=== PATIENT | female | born 1995 | race Caucasian/White ===

== ENCOUNTER 2020-01-23 01:23 | Day surgery (SDC) | payer BC, MEDICARE ==
--- NOTE | 2020-01-23 01:48 | ED.PDOC ---
History of Present Illness - History of Present Illness Initial Comments: 24 yo otherwise healthy F moved here recently from [place], comes in with c/c of RUQ that started at 10 PM. States she has a known history of cholelithasis. She was suppose to have her gallbladder removed, but never got it done. +n/v/d. Has had many flair ups, but none in the past month. States her flair ups are worse after eating certain foods. Ate spicy chicken tonight which seemed to trigger her symptoms. no fever. no yellowing of skin. no back pain. no dysuria, heamturia. <Chuyita Bose - Last Filed: 01/23/20 06:53> <Rocky Lam - Last Filed: 01/23/20 12:07> - General Time Seen by Provider: 01/23/20 01:37 Review of Systems - Review of Systems Constitutional: Denies: chills, fever EENTM: Denies: blurred vision, throat pain, throat swelling Respiratory: Denies: cough, short of breath Cardiology: Denies: chest pain, palpitations Gastrointestinal/Abdominal: States: abdominal pain, diarrhea, nausea, vomiting, other - denies black or bloody bm. Denies: constipation Genitourinary: Denies: dysuria, frequency, hematuria Musculoskeletal: Denies: back pain, muscle pain Skin: Denies: change in color, rash Neurological: Denies: headache, numbness, paresthesia, pre-existing deficit, tingling, tremors, weakness Endocrine: Denies: increased hunger, increased thirst, increased urine, unexplained weight gain, unexplained weight loss Hematologic/Lymphatic: Denies: anemia, easy bleeding, easy bruising <Chuyita Bose - Last Filed: 01/23/20 06:53> Past Medical History (General) - Patient Medical History Hx Other PMH: Yes - anemia, hx of miscarriage 11/2019 Hx Other - free text: gallstones, miscarriage November 2019 Surgical History: no surgical history - Social History Hx Alcohol Use: No Hx Substance Use: No Hx Substance Use Treatment: No - Female History Patient is a Female of Child Bearing Age (10 -59 yrs old): Yes - Hx Last Menstrual Period: 12/06/19 Patient : No <Chuyita Bose - Last Filed: 01/23/20 06:53> Family Medical History - Family History Mother Family History: No Known Non Contributory this Encounter: Non Contributory for this Encounter <Chuyita Bose - Last Filed: 01/23/20 06:53> Physical Exam - Physical Exam General Appearance: Alert, Comfortable, No apparent distress Eyes, Ears, Nose, Throat Exam: PERRL/EOMI, normal ENT inspection Neck: non-tender, full range of motion, supple, normal inspection Respiratory: chest non-tender, lungs clear, normal breath sounds, no respiratory distress, no accessory muscle use Cardiovascular/Chest: normal peripheral pulses, regular rate, rhythm, no edema, no gallop, no JVD, no murmur Peripheral Pulses: 2+ Gastrointestinal/Abdominal: normal bowel sounds, soft, no organomegaly, no pulsatile mass, tenderness, other - RUQ tenderness, no rebound, no gaurding. Rectal Exam: deferred Back Exam: normal inspection, no CVA tenderness, no vertebral tenderness Extremity: normal range of motion, non-tender, normal inspection, no pedal edema, no calf tenderness Neurologic: no motor/sensory deficits, alert, normal mood/affect, oriented x 3 Skin Exam: normal color, warm/dry Special Observations: Using mobile device <Chuyita Bose - Last Filed: 01/23/20 06:53> Progress - Progress Progress: 01/23/20 03:07 Partial DDx: kidney stone, cholelithiasis, Choleycystitis, pancreatitis, gastroenteritis Patient given zofran, toradol. Blood work drawn. Pain continues given 4 mg morphine. which helped pain. Over the course of 2 hours she has a total of 15 mg toradol x 2, morphine 4mg x1, Tylenol. if pain continues with give a dose of dilaudid. 4 mg zofran x 2. blood work shows mild luekocytosis, otherwise lft wnl. UA unremarkable. Attempted bedside US which does show shadowing, unable to get a good visualization of gallbladder to evaluate GBW or CBD. no peritoneal signs. blood cultures drawn. Given 500 mg falgyl and 750 mg of levaquin. My assessment and the results of testing completed here in the ED were discussed with the patient. All questions were answered, and they express understanding of my assessment and the plan. Discuss case with Dr. Dias recommends admission, US in AM. US ordered. Discussed with Reymundo Patton, recommends continue to monitor in ER, until US in AM. We will repeat CMP in AM. NPO. Patients Vital signs have remained stable, no peritoneal signs. Signed out to oncoming physician. -Pending repeat labs -pending RUQ ultrasound. 01/23/20 01:42 Sodium Chloride 0.9% 1000ML [Ns 1000 ml] 1,000 ml IVS STAT 01/23/20 02:28 BLOOD CULTURE Stat 01/23/20 03:32 Abdomen,Limited [US] Stat Laboratory Results WBC 11.1 K/mm3 (4.8-10.8) H 01/23/20 01:40 RBC 4.24 M/mm3 (4.20-5.40) 01/23/20 01:40 Hgb 11.0 gm/dL (12.0-16.0) L 01/23/20 01:40 Hct 33.1 % (36.0-47.0) L 01/23/20 01:40 MCV 78.1 fl (81.0-99.0) L 01/23/20 01:40 MCH 25.9 pg (27.0-31.0) L 01/23/20 01:40 MCHC 33.2 g/dL (33.0-37.0) 01/23/20 01:40 RDW 14.8 % (11.5-14.5) H 01/23/20 01:40 Plt Count 308 K/mm3 (130-400) 01/23/20 01:40 MPV 7.5 fl (7.40-10.4) 01/23/20 01:40 Absolute Neuts (auto) 6.90 K/uL (1.8-6.8) H 01/23/20 01:40 Absolute Lymphs (auto) 3.20 K/uL (1.0-3.4) 01/23/20 01:40 Absolute Monos (auto) 0.80 K/uL (0.2-0.8) 01/23/20 01:40 Absolute Eos (auto) 0.20 K/uL (0.0-0.4) 01/23/20 01:40 Absolute Basos (auto) 0.10 K/uL (0.0-0.1) 01/23/20 01:40 Neutrophils % 61.9 % (42.0-78.0) 01/23/20 01:40 Lymphocytes % 28.8 % (20.0-50.0) 01/23/20 01:40 Monocytes % 7.2 % (2.0-9.0) 01/23/20 01:40 Eosinophils % 1.5 % (1.0-5.0) 01/23/20 01:40 Basophils % 0.6 % (0.0-2.0) 01/23/20 01:40 Sodium 139 mmol/L (135-145) 01/23/20 01:40 Potassium 4.0 mmol/L (3.6-5.0) 01/23/20 01:40 Chloride 110 mmol/L (101-111) 01/23/20 01:40 Carbon Dioxide 20 mmol/L (21-31) L 01/23/20 01:40 Anion Gap 13.0 (12-18) 01/23/20 01:40 BUN 12 mg/dL (7-18) 01/23/20 01:40 Creatinine 0.69 mg/dL (0.6-1.3) 01/23/20 01:40 BUN/Creatinine Ratio 17.4 (10-20) 01/23/20 01:40 Random Glucose 91 mg/dL (70-105) 01/23/20 01:40 Serum Osmolality 276.9 mOsm/L (275-295) 01/23/20 01:40 Calcium 9.0 mg/dL (8.4-10.2) 01/23/20 01:40 Total Bilirubin 0.4 mg/dL (0.2-1.0) 01/23/20 01:40 AST 18 IU/L (10-42) 01/23/20 01:40 ALT 21 IU/L (10-60) 01/23/20 01:40 Alkaline Phosphatase 50 IU/L (42-121) 01/23/20 01:40 Serum Total Protein 7.5 gm/dL (6.4-8.2) 01/23/20 01:40 Albumin 4.0 g/dl (3.2-5.5) 01/23/20 01:40 Globulin 3.5 gm/dL (2.3-3.5) 01/23/20 01:40 Albumin/Globulin Ratio 1.1 (1.1-1.9) 09/18/20 01:40 Lipase 30 U/L (22-51) 01/23/20 01:40 Serum HCG, Qual Negative (NEGATIVE) 01/23/20 01:40 Urine Color Yellow (Yellow) 01/23/20 03:12 Urine Appearance Sl cloudy (Clear) 01/23/20 03:12 Urine pH 7.0 (4.5-7.8) 01/23/20 03:12 Ur Specific [place] 1.025 (1.005-1.030) 01/23/20 03:12 Urine Protein Negative mg/dL 01/23/20 03:12 Urine Glucose (UA) Negative mg/dL (Negative) 01/23/20 03:12 Urine Ketones Negative mg/dL (NEGATIVE) 01/23/20 03:12 Urine Blood Negative (Negative) 01/23/20 03:12 Urine Nitrite Negative 01/23/20 03:12 Urine Bilirubin Negative (NEGATIVE) 01/23/20 03:12 Urine Urobilinogen 0.2 mg/dL (0.2-1.0) 01/23/20 03:12 Ur Leukocyte Esterase Negative (Negative) 01/23/20 03:12 Urine RBC 0 /hpf 01/23/20 03:12 Urine WBC 1-3 /hpf 01/23/20 03:12 Ur Epithelial Cells 5-10 /hpf 01/23/20 03:12 Urine Bacteria Rare 01/23/20 03:12 - Consult/PCP Time Called: 02:45 Consult/PCP: Dr. Arun Roblero Reason/Comments: Surgery - Additional EKG/XRAY/Consults Time Called: 03:30 Consult/PCP: Reymundo Patton Reason/Comments: recommends to continue to monitor in ED, US in AM <Chuyita Bose - Last Filed: 01/23/20 06:53> - Results/Orders Results/Orders: Laboratory Tests 01/23/20 01/23/20 01/23/20 01:40 01:40 01:40 WBC 11.1 H RBC 4.24 Hgb 11.0 L Hct 33.1 L MCV 78.1 L MCH 25.9 L MCHC 33.2 RDW 14.8 H Plt Count 308 MPV 7.5 Absolute Neuts (auto) 6.90 H Absolute Lymphs (auto) 3.20 Absolute Monos (auto) 0.80 Absolute Eos (auto) 0.20 Absolute Basos (auto) 0.10 Neutrophils % 61.9 Lymphocytes % 28.8 Monocytes % 7.2 Eosinophils % 1.5 Basophils % 0.6 Sodium 139 Potassium 4.0 Chloride 110 Carbon Dioxide 20 L Anion Gap 13.0 BUN 12 Creatinine 0.69 BUN/Creatinine Ratio 17.4 Random Glucose 91 Serum Osmolality 276.9 Calcium 9.0 Total Bilirubin 0.4 AST 18 ALT 21 Alkaline Phosphatase 50 Serum Total Protein 7.5 Albumin 4.0 Globulin 3.5 Albumin/Globulin Ratio 1.1 Lipase 30 Serum HCG, Qual Negative Urine Color Urine Appearance Urine pH Ur Specific [place] Urine Protein Urine Glucose (UA) Urine Ketones Urine Blood Urine Nitrite Urine Bilirubin Urine Urobilinogen Ur Leukocyte Esterase Urine RBC Urine WBC Ur Epithelial Cells Urine Bacteria 01/23/20 03:12 WBC RBC Hgb Hct MCV MCH MCHC RDW Plt Count MPV Absolute Neuts (auto) Absolute Lymphs (auto) Absolute Monos (auto) Absolute Eos (auto) Absolute Basos (auto) Neutrophils % Lymphocytes % Monocytes % Eosinophils % Basophils % Sodium Potassium Chloride Carbon Dioxide Anion Gap BUN Creatinine BUN/Creatinine Ratio Random Glucose Serum Osmolality Calcium Total Bilirubin AST ALT Alkaline Phosphatase Serum Total Protein Albumin Globulin Albumin/Globulin Ratio Lipase Serum HCG, Qual Urine Color Yellow Urine Appearance Sl cloudy Urine pH 7.0 Ur Specific [place] 1.025 Urine Protein Negative Urine Glucose (UA) Negative Urine Ketones Negative Urine Blood Negative Urine Nitrite Negative Urine Bilirubin Negative Urine Urobilinogen 0.2 Ur Leukocyte Esterase Negative Urine RBC 0 Urine WBC 1-3 Ur Epithelial Cells 5-10 Urine Bacteria Rare On reassessment pt resting comfortably but with continued abdominal tenderness. US to arrive in approximately [address] in the meatime for broader evaluation of occult intra-abdominal pathology. CT ABDOMEN AND PELVIS WITH CONTRAST. CLINICAL HISTORY: pain vomiting COMPARISON: None. TECHNIQUE: Axial CT imaging of the abdomen and pelvis performed with intravenous contrast. Reformatted coronal and sagittal images reviewed. A dose reduction technique was utilized with automated exposure control according to patient size. FINDINGS: Lung bases are clear. Heart is normal in size. Mild decreased attenuation of the liver due to fatty infiltration. The liver is enlarged to nearly 23 cm. There is no liver mass or biliary dilatation. Normal gallbladder, spleen, pancreas, adrenal glands. There is a 7 mm inferior right renal cyst. Kidneys are otherwise normal. Normal aorta and inferior vena cava caliber. Mesenteric vessels appear normal. Unremarkable stomach. Normal small bowel loops. Normal right lower quadrant appendix. Unremarkable colon. No ascites or free air. Tiny fat-containing ventral hernia. Normal bladder. Unremarkable uterus. Follicular changes are present within the ovaries. There is trace pelvic free fluid. Normal lumbosacral alignment. Intact bony pelvis. Normal hips. IMPRESSION: 1. Hepatomegaly with mild steatosis. 2. No acute finding within the remaining abdomen. 3. Trace pelvic free fluid, physiologic in a patient of this age.. Electronically signed by: Leanna Yeboah DO 01/23/2020 7:54 AM CDT EXAM DESCRIPTION: Abdomen,Limited: ULTRASOUND. CLINICAL HISTORY: ruq pain COMPARISON: None. TECHNIQUE: Transabdominal scanning: oconnor-scale mode. Doppler mode.. Technically difficult study due to patient's large body habitus. FINDINGS: Gallbladder: Slightly enlarged with multiple echogenic structures and increasing shadowing obscuring a majority of the posterior gallbladder. The stones measure 1.0 and 1.1 cm. No fluid around the gallbladder. No wall thickening. 2.4 mm. Non-tender with transducer pressure. Common bile duct: caliber 4.2 mm within normal limits. Liver: Increased echogenicity; contour liver capsule smooth where seen. No fluid around the liver. Intrahepatic biliary ducts normal caliber. Doppler hepatopedal flow and normal caliber portal vein.. 10 mm. Long axis right lobe 17.3 cm. Pancreas: normal size and echogenicity. Duct not seen. Proximal abdominal aorta: 1.4 cm normal caliber.. IVC: visualized and normal caliber. Right kidney: long axis measures 10.4 cm; volume 148 mL ml. Cortical echogenicity is normal. Normal cortical thickness. Normal. No echogenic stones and no hydronephrosis. IMPRESSION: 1. Cholelithiasis with no wall thickening fluid or tenderness. Normal caliber of the common bile duct. 2. Mildly enlarged fatty liver. Physiologic vascularity and splenic capsule with no ascites. Negative findings in the pancreas. 3. Right kidney is unremarkable. Normal caliber of the proximal abdominal aorta. Electronically signed by: Derrick Krueger MD 01/23/2020 9:36 AM CDT Spoke to Dr. Dias, he will come see and evaluate patient Dr. Dias has accepted patient will ADMIT <Rocky Lam - Last Filed: 01/23/20 12:07> Departure <Chuyita Bose - Last Filed: 01/23/20 06:53> - Departure Time of Disposition: 12:06 <Rocky Lam - Last Filed: 01/23/20 12:07> - Departure Clinical Impression: Abdominal pain Qualifiers: Abdominal location: right upper quadrant Qualified Code(s): R10.11 - Right upper quadrant pain Cholelithiasis Qualifiers: Cholelithiasis location: gallbladder Cholecystitis presence: with cholecystitis Cholecystitis acuity: acute Biliary obstruction: without biliary obstruction Qualified Code(s): K80.00 - Calculus of gallbladder with acute cholecystitis without obstruction Disposition: Discharge to Home or Self Care Condition: Fair Decision To Admit - Decistion To Admit Decision to Admit Date: 01/23/20 Decision to Admit Time: 12:06 - Dr. Dias <Rocky Lam - Last Filed: 01/23/20 12:07>
[2020-01-23] MEDS: SODIUM CHLORIDE 0.9% 1000ML 1,000 ML IVS PRN (01:54)
[2020-01-23] MEDS: ONDANSETRON INJ 4 MG/2 ML VIAL IV ONE ×3 (01:54→10:25)
[2020-01-23] MEDS: KETOROLAC TROMETHAMINE INJ 30 MG/ML VIAL IV ONE ×2 (02:08→03:34)
[2020-01-23] MEDS: MORPHINE SULFATE INJ 10 MG/ML VIAL IV ONE ×2 (02:21→10:27)
[2020-01-23] MEDS: levoFLOXacin 750MG IV 750 MG in PREMIX BAG 1 BAG IVPB ONE (02:43)
[2020-01-23] MEDS: metroNIDAZOLE IV PREMIX 500MG 500 MG in PREMIX BAG 1 BAG IVPB ONE (02:44)
[2020-01-23] MEDS: ACETAMINOPHEN IV 1000MG 1,000 MG in PREMIX BOTTLE 1 BOTTLE IVPB ONE (04:03)
[2020-01-23] MEDS ORDERED: ONDANSETRON INJ 4 MG/2 ML VIAL ONE (04:06)
--- NOTE | 2020-01-23 07:56 | CT ---
CT ABDOMEN AND PELVIS WITH CONTRAST. CLINICAL HISTORY: pain vomiting COMPARISON: None. TECHNIQUE: Axial CT imaging of the abdomen and pelvis performed with intravenous contrast. Reformatted coronal and sagittal images reviewed. A dose reduction technique was utilized with automated exposure control according to patient size. FINDINGS: Lung bases are clear. Heart is normal in size. Mild decreased attenuation of the liver due to fatty infiltration. The liver is enlarged to nearly 23 cm. There is no liver mass or biliary dilatation. Normal gallbladder, spleen, pancreas, adrenal glands. There is a 7 mm inferior right renal cyst. Kidneys are otherwise normal. Normal aorta and inferior vena cava caliber. Mesenteric vessels appear normal. Unremarkable stomach. Normal small bowel loops. Normal right lower quadrant appendix. Unremarkable colon. No ascites or free air. Tiny fat-containing ventral hernia. Normal bladder. Unremarkable uterus. Follicular changes are present within the ovaries. There is trace pelvic free fluid. Normal lumbosacral alignment. Intact bony pelvis. Normal hips. IMPRESSION: 1. Hepatomegaly with mild steatosis. 2. No acute finding within the remaining abdomen. 3. Trace pelvic free fluid, physiologic in a patient of this age.. Electronically signed by: Leanna Yeboah DO 01/23/2020 7:54 AM CDT
--- NOTE | 2020-01-23 09:38 | US ---
EXAM DESCRIPTION: Abdomen,Limited: ULTRASOUND. CLINICAL HISTORY: ruq pain COMPARISON: None. TECHNIQUE: Transabdominal scanning: oconnor-scale mode. Doppler mode.. Technically difficult study due to patient's large body habitus. FINDINGS: Gallbladder: Slightly enlarged with multiple echogenic structures and increasing shadowing obscuring a majority of the posterior gallbladder. The stones measure 1.0 and 1.1 cm. No fluid around the gallbladder. No wall thickening. 2.4 mm. Non-tender with transducer pressure. Common bile duct: caliber 4.2 mm within normal limits. Liver: Increased echogenicity; contour liver capsule smooth where seen. No fluid around the liver. Intrahepatic biliary ducts normal caliber. Doppler hepatopedal flow and normal caliber portal vein.. 10 mm. Long axis right lobe 17.3 cm. Pancreas: normal size and echogenicity. Duct not seen. Proximal abdominal aorta: 1.4 cm normal caliber.. IVC: visualized and normal caliber. Right kidney: long axis measures 10.4 cm; volume 148 mL ml. Cortical echogenicity is normal. Normal cortical thickness. Normal. No echogenic stones and no hydronephrosis. IMPRESSION: 1. Cholelithiasis with no wall thickening fluid or tenderness. Normal caliber of the common bile duct. 2. Mildly enlarged fatty liver. Physiologic vascularity and splenic capsule with no ascites. Negative findings in the pancreas. 3. Right kidney is unremarkable. Normal caliber of the proximal abdominal aorta. Electronically signed by: Derrick Krueger MD 01/23/2020 9:36 AM CDT
[2020-01-23] MEDS ORDERED: PROPOFOL 200 MG/20 ML VIAL IV ONE (10:00)
[2020-01-23] MEDS ORDERED: DEXAMETHASONE INJ 10 MG/ML VIAL IV ONE (10:00)
[2020-01-23] MEDS ORDERED: LIDOCAINE 1% 10 ML VIAL INJ ONE (10:00)
[2020-01-23] MEDS ORDERED: MAGNESIUM SULFATE INJ 1 GM/2 ML VIAL IVPB ONE (10:00)
[2020-01-23] MEDS ORDERED: KETOROLAC TROMETHAMINE INJ 30 MG/ML VIAL IV ONE (10:00)
[2020-01-23] MEDS ORDERED: MIDAZOLAM INJ 2 MG/2 ML VIAL ONE (12:11)
[2020-01-23] MEDS ORDERED: SUGAMMADEX SODIUM 200 MG/2 ML VIAL IV ONE (12:11)
[2020-01-23] MEDS ORDERED: KETAMINE HCL 100 MG/ML VIAL ONE (12:11)
[2020-01-23] MEDS ORDERED: fentaNYL CITRATE INJ 50 MCG/ML AMP ONE (12:12)
[2020-01-23] MEDS ORDERED: ROCURONIUM BROMIDE 10 MG/ML VIAL ONE (12:12)
[2020-01-23] MEDS ORDERED: FAMOTIDINE 10 MG/ML ML IV ONE (12:13)
[2020-01-23] MEDS ORDERED: DEXMEDETOMIDINE HCL 200 MCG/2 ML INJ IV ONE (12:13)
[2020-01-23] MEDS: BUPIVACAINE 0.25% W/EPI 50 ML VIAL INJ ONE (12:59)
[2020-01-23] MEDS: HEPARIN SODIUM (PORCINE) 10,000 UNITS/ML VIAL ONE (13:15)
--- NOTE | 2020-01-23 13:56 | RAD ---
EXAM DESCRIPTION: Fluoroscopy Up to 1Hr CLINICAL HISTORY: IOC pain vomiting cholelithiasis FINDINGS: Spot radiographs from intraoperative cholangiogram shows filling of the intra and extrahepatic bile ducts and drainage of contrast media into the duodenum. There are no filling defects seen. Fluoroscopy time less than our, dose not givenmGy,number of films 1. IMPRESSION: Normal intraoperative cholangiogram Electronically signed by: Jordi Treadwell MD 01/23/2020 1:52 PM CDT
[2020-01-23] MEDS: ELECTROLYTE-A 1,000 ML IVS ONE (14:14)
--- NOTE | 2020-01-23 14:40 | OP ---
DATE OF PROCEDURE: 01/23/20 PREOPERATIVE DIAGNOSIS: 1. Symptomatic cholelithiasis. 2. Fatty infiltration of the liver. POSTOPERATIVE DIAGNOSIS: 1. Symptomatic cholelithiasis. 2. Fatty infiltration of the liver. Liver pathology is pending. 3. Chronic cholecystitis. PROCEDURE: 1. Laparoscopic cholecystectomy with intraoperative cholangiography. 2. Wedge biopsy, right lobe of the liver. SURGEON: Jackson Dias MD. FORMING MACHINE UPKEEP MECHANIC HELPER: None. ANESTHESIA: Local infiltration of 0.25% Marcaine with epinephrine and general endotracheal anesthesia. INDICATION: The patient is a 24-year-old female who has had biliary symptoms while . She has no history of hepatitis or jaundice, but continues to have right upper quadrant pain which brought her to the Emergency Room early this morning. She had previously had an ultrasound in [place], however, we do not have records of that, so she was given another ultrasound and CT scan which revealed cholelithiasis with a normal ductal system, normal pancreas. The liver was thought to have fatty infiltration. Therefore, we recommended a wedge biopsy. The risks, benefits and alternatives to cholecystectomy were otherwise discussed with the patient and she was in agreement. She is brought to the Surgical Suite this afternoon for cholecystectomy. FINDINGS: The gallbladder wall was thickened and mildly distended. There was no pericholecystic fluid noted. Intraoperative cholangiography revealed free flow into the duodenum with no filling defects or strictures noted. The liver had the sheen of fatty infiltration without obvious lobules. Pathology is pending. DESCRIPTION OF PROCEDURE: After adequate general endotracheal anesthesia was obtained, the patient was prepped and draped in the usual sterile manner. She had been given Levaquin in the Emergency Room along with Flagyl. Surgical time- out was taken. The infraumbilical area was infiltrated with local anesthesia. A curvilinear incision was fashioned and carried down through the subcutaneous tissue to the midline fascia. Traction sutures were placed on either side of the midline. A small incision was made in the midline fascia and the peritoneum was opened bluntly. Vishal trocar was introduced under direct vision into the abdominal cavity and fixed in place with the 20 mL balloon. When this was done, the abdominal cavity was insufflated until a pressure of 12 mmHg was reached and the abdomen was tympanitic in all four quadrants. When this was done, the laparoscope was introduced. The abdomen was inspected with the previously noted findings. I did note that the stomach was distended, so an OG was placed, which removed the volume of the stomach. At this point, after the abdomen was inspected in all 4 quadrants, the patient was then placed in reverse Trendelenburg position and turned to the left side. The upper abdominal ports were placed under direct vision in the usual manner. The gallbladder was grasped, retracted anteriorly and laterally. The neck of the gallbladder was retracted laterally. The triangle of Calot was then explored with the cystic duct and cystic artery identified and isolated. The cystic duct was hemoclipped once proximally. The cystic artery was hemoclipped twice proximally and once distally. A small incision was made in the cystic duct. The cholangiogram catheter was introduced under direct vision and clipped in place in the cystic duct. When this was done, fluoroscopy was used to identify the ducts. When there was noted to be good flow into the duodenum with no filling defects or strictures noted, the cystic duct catheter was removed. The cystic duct was hemoclipped three times distally and divided between the hemoclips. The cystic artery was divided. The gallbladder was then dissected free from the gallbladder bed of the liver using electrocautery with no significant difficulty. The gallbladder was placed in an EndoCatch bag and removed from the infraumbilical port site in the usual manner under direct vision. When this was done, port was replaced and wedge biopsy was performed at the edge of the right lobe of the liver with sharp scissors and the specimen was removed. Hemostasis was obtained with cautery turned up to 50 on coag only. When this was done, the subhepatic space and subphrenic space were irrigated copiously with saline. The effluent was noted to be clear. The moiz hepatis was inspected and no bleeding or bile leak was identified. Again, the biopsy site of the liver and the gallbladder bed were noted to have good hemostasis. At this point, the remaining fluid was removed. The upper abdominal ports were removed under direct vision and good hemostasis was noted. At this point, the CO2, the laparoscope and the infraumbilical port were removed. The infraumbilical port site fascia was approximated with a single running suture of 0 Vicryl. When this was done and the suture was tightened and tied, the subcutaneous tissue was irrigated with saline. Skin edges were approximated with 4-0 Vicryl subcuticular sutures, benzoin and Steri-Strips. Sterile dressings were applied. The patient was awakened and taken to the Recovery Room in good and stable condition. Estimated blood loss was less than 50 mL. All sponge, needle and instrument counts were correct. #[id number]
[2020-01-23] MEDS: ONDANSETRON INJ 4 MG/2 ML VIAL ONE (15:15)
[2020-01-23] MEDS: HYDROcodone 10MG/APAP 325MG 1 EA TAB ONE (15:15)
[2020-01-23 16:36] VITALS: BP 110/66; TEMP 96.6; O2SAT 98
== END 2020-01-23 16:30 | disposition home or self-care (01) ==
LOC: AMB 01:23 → ER 01:23 → EDSTATUS 12:08 → ER 12:38
PROVIDERS: ATTEND Emergency Medicine
DX: K80.00 Calculus of gallbladder with acute cholecystitis without obstruction (principal); R10.11 Right upper quadrant pain; R11.2 Nausea with vomiting, unspecified
CPT/HCPCS: 36415; 74177; 76000; 76775; 80053; 81001; 83690; 84703; 85025; 87040; J1644; J1885; J1956; J2250; J2270; J2405; J3010; J3490; J7030

== ENCOUNTER 2020-02-01 21:25 | Emergency (ER) | payer BC ==
[2020-02-01] MEDS ORDERED: SODIUM CHLORIDE 0.9% 1000ML 1,000 ML IVS PRN (21:36)
--- NOTE | 2020-02-01 21:37 | ED.PDOC ---
History of Present Illness - General Chief Complaint: Headache Stated Complaint: migraine x's 5 days Time Seen by Provider: 02/01/20 21:27 Source: patient, RN notes reviewed, Vital Signs reviewed Exam Limitations: no limitations - History of Present Illness Initial Comments: 24 yo s/p cholecystectomy 12 days ago comes in with c/c of bilateral throbbing headache. states she has a history of bad migraines. has tried all the otc medicines without benefit. states she has been more tired as well. no fever, no sore throat, no body aches. no change in taste or smell, no cough or shortness of breath. + photophobia. Timing/Duration: 1 week, constant Quality: constant, pressure, sharp, throbbing Head Injury Location: frontal Recent Head Trauma: no recent headache/trauma Improving Factors: nothing Worsening Factors: nothing Associated Symptoms: denies symptoms Allergies/Adverse Reactions: Allergies Cefaclor [From Ceclor] Allergy (Verified 01/23/20 01:44) Home Medications: Ambulatory Orders Promethazine Tab [Phenergan Tablet] 25 mg PO TID PRN #15 tab 02/01/20 Review of Systems - Review of Systems Constitutional: Denies: chills, fever EENTM: Denies: blurred vision, double vision, ear pain, nose pain, throat swelling, mouth swelling Respiratory: Denies: cough, short of breath Cardiology: Denies: chest pain, palpitations Gastrointestinal/Abdominal: States: nausea. Denies: abdominal pain, vomiting Genitourinary: Denies: frequency, hematuria Musculoskeletal: Denies: back pain, joint pain, muscle pain Neurological: States: headache. Denies: numbness, paresthesia, pre-existing deficit, seizure, tingling, tremors, weakness Endocrine: Denies: unexplained weight gain, unexplained weight loss Hematologic/Lymphatic: Denies: easy bleeding, easy bruising Past Medical History (General) - Patient Medical History Hx Seizures: No Hx Stroke: No Hx Dementia: No Hx Asthma: No Hx of COPD: No Hx Cardiac Disorders: No Hx Congestive Heart Failure: No Hx Pacemaker: No Hx Hypertension: No Hx Thyroid Disease: No Hx Diabetes: No Hx Gastroesophageal Reflux: No Hx Renal Disease: No Hx Cancer: No Hx of HIV: No Hx Hepatitis C: No Hx MRSA: No - Vaccination History Hx Tetanus, Diphtheria Vaccination: Yes Hx Influenza Vaccination: No Hx Pneumococcal Vaccination: No - Social History Hx Tobacco Use: Yes - 2 Packs a day Hx Chewing Tobacco Use: No Hx Alcohol Use: No Hx Substance Use: No Hx Substance Use Treatment: No Hx Depression: No Hx Physical Abuse: No Hx Emotional Abuse: No Hx Suspected Abuse: No - Female History Hx Last Menstrual Period: 12/06/19 Patient : No Family Medical History - Family History Mother Family History: No Known Physical Exam - Physical Exam General Appearance: Alert, Comfortable, No apparent distress, Well Developed, Well Groomed, Well Hydrated, Well Nourished, Other - stable gait Eyes, Ears, Nose, Throat Exam: PERRL/EOMI, normal ENT inspection, TMs normal Neck: non-tender, full range of motion, supple, normal inspection Cardiovascular/Chest: normal peripheral pulses, regular rate, rhythm, no edema, no gallop, no JVD, no murmur Respiratory: chest non-tender, lungs clear, normal breath sounds, no respiratory distress, no accessory muscle use Gastrointestinal/Abdominal: normal bowel sounds, non tender, soft, other - surgical scars well adhered without erythema or signs of infection. 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 patient states her aunt drove. patient given 1 L NS bolus, 12.5 mg phenergan and 30 mg toradol IV. She is talking on phone most of visit, no apparent distress. VSS, afebrile. 02/01/20 22:59 patient resting comfortably. will call with covid test. Pain improved with medications. The data reviewed when caring for this patient included: nurse notes, prior records, etc. The history and assessments from nurses notes were reviewed and considered, and the patient's home medication list was also reviewed and considered. My assessment and the results of testing completed here in the ED were discussed with the patient. All questions were answered, and she express understanding of my assessment and the plan. she have been instructed to return if their symptoms worsen, and have been asked to follow up with their primary care physician to recheck today's presenting complaint. return precautions given. I have reviewed medication, benefits, alternatives and side effects. Patient decided to proceed with medication.patient discharged home in stable condition. Chuyita Bose DO #[id number] - Results/Orders Results/Orders: 02/01/20 21:36 Sodium Chloride 0.9% 1000ML [Ns 1000 ml] 1,000 ml IVS STAT 02/01/20 21:46 RESPIRATORY PANEL 2 Stat 02/01/20 22:59 Discharge Stat Laboratory Results Serum HCG, Qual Negative (NEGATIVE) 02/01/20 21:46 Departure - Departure Clinical Impression: Headache Qualifiers: Headache type: unspecified Headache chronicity pattern: acute headache Intractability: not intractable Qualified Code(s): R51 - Headache Time of Disposition: 22:57 Disposition: Discharge to Home or Self Care Departure Forms: ED Discharge - Pt. Copy, Patient Portal Self Enrollment Instructions: DI for Headache, Tension Headache, Migraines (DC) Prescriptions: Promethazine Tab [Phenergan Tablet] 25 mg PO TID PRN #15 tab PRN Reason: Headache Or Mild Pain Home Medications: Ambulatory Orders Promethazine Tab [Phenergan Tablet] 25 mg PO TID PRN #15 tab 02/01/20 Additional Instructions: Follow up with a primary care doctor in 1-5 days.
[2020-02-01 22:21] VITALS: TEMP 97.5
[2020-02-01] MEDS ORDERED: KETOROLAC TROMETHAMINE INJ 30 MG/ML VIAL IV ONE (22:24)
[2020-02-01] MEDS ORDERED: PROMETHAZINE HCL INJ 12.5 MG in SODIUM CHLORIDE 0.9% 50ML 50 ML IVPB ONE (22:24)
[2020-02-01 23:09] VITALS: BP 112/68; O2SAT 98
== END 2020-02-01 23:16 | disposition home or self-care (01) ==
LOC: ER 21:25
DX: R51 Headache (principal); R11.0 Nausea; H53.149 Visual discomfort, unspecified; Z87.891 Personal history of nicotine dependence; Z88.1 Allergy status to other antibiotic agents; Z20.828 Contact with and (suspected) exposure to other viral communicable diseases
CPT/HCPCS: 84703; 87635; A4216; J1885; J2550; J7030

== ENCOUNTER 2020-02-14 | Emergency (ER) | payer BC, MEDICAID ==
[2020-02-14] MEDS ORDERED: BENZOCAINE 14% W/TETRACAINE 20 GM CAN TOP ONE (00:11)
[2020-02-14 00:17] VITALS: BP 144/64; TEMP 96.5; O2SAT 99
--- NOTE | 2020-02-14 00:24 | ED.PDOC ---
History of Present Illness - General Chief Complaint: Skin/Abrasion/Tear Stated Complaint: lip piercing hurts Time Seen by Provider: 02/14/20 00:09 Source: patient, RN notes reviewed, Vital Signs reviewed - History of Present Illness Initial Comments: 24 yo F got lip re-pierced 4 days ago, comes in with increasing pain to araujo lip. no drainage. states it is stuck inside her lip and can't get it out. Allergies/Adverse Reactions: Allergies Cefaclor [From Ceclor] Allergy (Verified 01/23/20 01:44) Review of Systems - Review of Systems Constitutional: Denies: chills, fever EENTM: States: mouth pain. Denies: mouth swelling Respiratory: Denies: cough, short of breath Cardiology: Denies: chest pain, palpitations Gastrointestinal/Abdominal: Denies: abdominal pain, nausea, vomiting Genitourinary: Denies: discharge, frequency Musculoskeletal: Denies: back pain Neurological: Denies: headache, numbness, paresthesia, tingling Hematologic/Lymphatic: Denies: easy bleeding, easy bruising Past Medical History (General) - Patient Medical History Hx Seizures: No Hx Stroke: No Hx Dementia: No Hx Asthma: No Hx of COPD: No Hx Cardiac Disorders: No Hx Congestive Heart Failure: No Hx Pacemaker: No Hx Hypertension: No Hx Thyroid Disease: No Hx Diabetes: No Hx Gastroesophageal Reflux: No Hx Renal Disease: No Hx Cancer: No Hx of HIV: No Hx Hepatitis C: No Hx MRSA: No Surgical History: cholecystectomy - Vaccination History Hx Tetanus, Diphtheria Vaccination: Yes Hx Influenza Vaccination: Yes - 2019 Hx Pneumococcal Vaccination: No - Social History Hx Tobacco Use: Yes Hx Chewing Tobacco Use: No Hx Alcohol Use: No Hx Substance Use: No Hx Substance Use Treatment: No Hx Depression: No Hx Physical Abuse: No Hx Emotional Abuse: No Hx Suspected Abuse: No - Female History Hx Last Menstrual Period: 12/06/19 Patient : No Family Medical History - Family History Mother Family History: No Known Physical Exam - Physical Exam General Appearance: Alert, Comfortable, No apparent distress, Well Developed, Well Groomed, Well Hydrated, Well Nourished Ears, Nose, Throat: hearing grossly normal, normal ENT inspection, other - rip upper lip piercing, with mild irritation, embedded underneath the skin. 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 then a heimostat was used to pull the back end of piercing out of mouth. patient tolerated well. basic wound care education provided. 02/14/20 00:27 Departure - Departure Clinical Impression: Pierced lip infection ICD-10 Supporting Text: Pierced lip complication Time of Disposition: 00:22 Disposition: Discharge to Home or Self Care Condition: Fair Departure Forms: ED Discharge - Pt. Copy, Patient Portal Self Enrollment Instructions: DI for Abrasion, Oral Piercings
== END 2020-02-14 00:26 | disposition home or self-care (01) ==
LOC: ER
DX: S00.551A Superficial foreign body of lip, initial encounter (principal); W45.8XXA Other foreign body or object entering through skin, initial encounter; Y92.9 Unspecified place or not applicable; Z88.1 Allergy status to other antibiotic agents; Z87.891 Personal history of nicotine dependence

== ENCOUNTER 2020-02-24 15:10 | Emergency (ER) | payer MEDICAID ==
[2020-02-24] MEDS ORDERED: SODIUM CHLORIDE 0.9% (FLUSH) 10 ML SYG IV PRN (16:05)
[2020-02-24] MEDS ORDERED: SODIUM CHLORIDE 0.9% 1000ML 1,000 ML IVS ONE (16:05)
[2020-02-24] MEDS ORDERED: PROMETHAZINE HCL INJ 25 MG in SODIUM CHLORIDE 0.9% 50ML 50 ML IVPB ONE (16:06)
--- NOTE | 2020-02-24 16:34 | ED.PDOC ---
History of Present Illness - General Chief Complaint: GI Problem Stated Complaint: abdominal pain Time Seen by Provider: 02/24/20 16:05 Information Source: patient, RN notes reviewed, Vital Signs reviewed Exam Limitations: no limitations - History of Present Illness Initial Comments: tPatient is a 24-year-old white female who presents with complaints of abdominal pain. The pain started 1 day ago. It is sharp and stabbing in nature. Nothing makes it better. Worse with palpation or movement. No radiation of the pain. It is intermittent. Abdominal Pain Onset Location: LLQ, suprapubic Pain Radiation: no radiation Quality: moderate, sharpness, stabbing, waxing/waning Timing/Duration: 24 hours Improving Factors: nothing Worsening Factors: movement, other - Palpation Associated Symptoms: nausea/vomiting - Nausea only, other - Diarrhea Review of Systems - Review of Systems Constitutional: States: no symptoms reported, see HPI. Denies: chills, fever, weakness EENTM: States: no symptoms reported. Denies: eye pain, blurred vision, double vision Respiratory: States: no symptoms reported. Denies: cough, short of breath, stridor Cardiology: States: no symptoms reported. Denies: chest pain, palpitations, syncope Gastrointestinal/Abdominal: States: see HPI, abdominal pain, diarrhea, nausea. Denies: vomiting Genitourinary: States: no symptoms reported. Denies: dysuria, frequency Musculoskeletal: States: no symptoms reported. Denies: back pain, joint pain, neck pain Skin: States: no symptoms reported. Denies: change in color, rash Neurological: States: no symptoms reported. Denies: headache, tingling, tremors, weakness Endocrine: States: no symptoms reported. Denies: increased hunger, increased thirst, increased urine Hematologic/Lymphatic: States: no symptoms reported. Denies: blood clots, easy bleeding All other Systems: Reviewed and Negative Past Medical History (General) - Patient Medical History Hx Seizures: No Hx Stroke: No Hx Dementia: No Hx Asthma: No Hx of COPD: No Hx Cardiac Disorders: No Hx Congestive Heart Failure: No Hx Pacemaker: No Hx Hypertension: No Hx Thyroid Disease: No Hx Diabetes: No Hx Gastroesophageal Reflux: No Hx Renal Disease: No Hx Cancer: No Hx of HIV: No Hx Hepatitis C: No Hx MRSA: No Surgical History: cholecystectomy - Vaccination History Hx Tetanus, Diphtheria Vaccination: No Hx Influenza Vaccination: No Hx Pneumococcal Vaccination: Yes - Social History Hx Tobacco Use: No Hx Chewing Tobacco Use: No Hx Alcohol Use: No Hx Substance Use: No Hx Substance Use Treatment: No Hx Depression: No Hx Physical Abuse: No Hx Emotional Abuse: No Hx Suspected Abuse: No - Female History Hx Last Menstrual Period: 12/06/19 Patient : No Family Medical History - Family History Mother Family History: No Known Physical Exam - Physical Exam General Appearance: Alert, Anxious, Obese, Unkempt, Well Developed, Well Hydrated, Well Nourished Eyes, Ears, Nose, Throat Exam: PERRL/EOMI, normal ENT inspection, pharynx normal Neck: non-tender, full range of motion, supple Respiratory: chest non-tender, lungs clear, normal breath sounds, no respiratory distress, no accessory muscle use Cardiovascular/Chest: normal peripheral pulses, regular rate, rhythm, no edema, no gallop, no JVD, no murmur Peripheral Pulses: No deficit Gastrointestinal/Abdominal: normal bowel sounds, soft, tenderness - Suprapubic and left lower quadrant Back Exam: normal inspection, no CVA tenderness, no vertebral tenderness 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 02/24/20 18:29 Labs are within normal limits. Patient does not have a white count so doubt infection. Urinalysis does not show any infection. CT scan does not show obstruction or diverticulitis. I suspect patient has mild viral gastroenteritis . Plan on discharge home with a prescription for Zofran ODT. Of discussed this plan of care with the patient she voices understanding and agreement. Lowell Quinonez M.D. #[id number] - Results/Orders Results/Orders: 02/24/20 16:05 IV Care:Saline Lock per Protoc QSHIFT Sodium Chloride 0.9% (Flush) [Saline Flush Syringe] 10 ml IV PRN PRN 02/24/20 17:10 Hold Metformin x 48Hrs [id number] Laboratory Results - last 24 hr 02/24/20 02/24/20 02/24/20 15:25 15:25 16:00 WBC 6.7 RBC 4.40 Hgb 11.6 L Hct 34.6 L MCV 78.5 L MCH 26.3 L MCHC 33.4 RDW 15.5 H Plt Count 290 MPV 7.9 Absolute Neuts (auto) 3.80 Absolute Lymphs (auto) 2.30 Absolute Monos (auto) 0.40 Absolute Eos (auto) 0.20 Absolute Basos (auto) 0.00 Neutrophils % 56.1 Lymphocytes % 34.7 Monocytes % 5.9 Eosinophils % 2.6 Basophils % 0.7 Sodium Potassium Chloride Carbon Dioxide Anion Gap BUN Creatinine BUN/Creatinine Ratio Random Glucose Serum Osmolality Calcium Total Bilirubin Direct Bilirubin Indirect Bilirubin AST ALT Alkaline Phosphatase Serum Total Protein Albumin Lipase Urine Color Yellow Urine Appearance Cloudy Urine pH 6.5 Ur Specific [place] 1.025 Urine Protein Negative Urine Glucose (UA) Negative Urine Ketones Negative Urine Blood Negative Urine Nitrite Negative Urine Bilirubin Negative Urine Urobilinogen 0.2 Ur Leukocyte Esterase Trace H Urine RBC 0 Urine WBC 0-1 Ur Epithelial Cells Tntc Urine Bacteria 1+ Urine HCG, Qual Negative 02/24/20 16:00 WBC RBC Hgb Hct MCV MCH MCHC RDW Plt Count MPV Absolute Neuts (auto) Absolute Lymphs (auto) Absolute Monos (auto) Absolute Eos (auto) Absolute Basos (auto) Neutrophils % Lymphocytes % Monocytes % Eosinophils % Basophils % Sodium 140 Potassium 3.7 Chloride 112 H Carbon Dioxide 21 Anion Gap 10.7 L BUN 10 Creatinine 0.62 BUN/Creatinine Ratio 16.1 Random Glucose 127 H Serum Osmolality 280.0 Calcium 8.9 Total Bilirubin 0.3 Direct Bilirubin < 0.1 Indirect Bilirubin 0.2 AST 20 ALT 25 Alkaline Phosphatase 46 Serum Total Protein 7.4 Albumin 4.0 Lipase 31 Urine Color Urine Appearance Urine pH Ur Specific [place] Urine Protein Urine Glucose (UA) Urine Ketones Urine Blood Urine Nitrite Urine Bilirubin Urine Urobilinogen Ur Leukocyte Esterase Urine RBC Urine WBC Ur Epithelial Cells Urine Bacteria Urine HCG, Qual EXAM: Abdomen/Pelvis w/Contrast CLINICAL INDICATION: Abdominal pain. COMPARISON: 01/23/2020 TECHNIQUE: The CT scan was done using contiguous axial 5 mm postcontrast sections through the abdomen and pelvis including IV contrast. This exam was performed according to our departmental dose-optimization program, which includes automated exposure control, adjustment of the mA and/or kV according to patient size and/or use of iterative reconstruction technique. FINDINGS: The visualized portions of the lung bases are clear. There is mild fatty change of the liver without any focal hepatic abnormality. The gallbladder is surgically absent. The kidneys, adrenal glands, spleen, and pancreas are unremarkable. There are no dilated loops of small bowel. There is no free air, free fluid, or abscess. The appendix is normal. IMPRESSION: 1. No evidence of an acute intra-abdominal process. 2. Fatty liver. Electronically signed by: Harlan Miller MD 02/24/2020 5:45 PM Vital Signs 02/24/20 15:15 Temperature 97.9 F Pulse Rate [ 81 pulse ox] Respiratory 20 Rate Blood Pressure 111/74 [Left Arm] O2 Sat by Pulse 98 Oximetry Departure - Departure Clinical Impression: Gastroenteritis, Obesity (BMI 35.0-39.9 without comorbidity) Abdominal pain Qualifiers: Abdominal location: left lower quadrant Qualified Code(s): R10.32 - Left lower quadrant pain Time of Disposition: 18:31 Disposition: Discharge to Home or Self Care Condition: Good Departure Forms: ED Discharge - Pt. Copy, Patient Portal Self Enrollment Instructions: Viral Gastroenteritis, Adult (DC), Acute Abdomen (Belly Pain), Adult (DC) Diet: resume usual diet Activity: increase activity as tolerated Referrals: John Toussaint MD [Physicians] - 1-5 Days Prescriptions: Ondansetron [Ondansetron Odt] 4 mg PO Q6H #12 tab Home Medications: Ambulatory Orders Ondansetron [Ondansetron Odt] 4 mg PO Q6H #12 tab 02/24/20
--- NOTE | 2020-02-24 17:47 | CT ---
EXAM: Abdomen/Pelvis w/Contrast CLINICAL INDICATION: Abdominal pain. COMPARISON: 01/23/2020 TECHNIQUE: The CT scan was done using contiguous axial 5 mm postcontrast sections through the abdomen and pelvis including IV contrast. This exam was performed according to our departmental dose-optimization program, which includes automated exposure control, adjustment of the mA and/or kV according to patient size and/or use of iterative reconstruction technique. FINDINGS: The visualized portions of the lung bases are clear. There is mild fatty change of the liver without any focal hepatic abnormality. The gallbladder is surgically absent. The kidneys, adrenal glands, spleen, and pancreas are unremarkable. There are no dilated loops of small bowel. There is no free air, free fluid, or abscess. The appendix is normal. IMPRESSION: 1. No evidence of an acute intra-abdominal process. 2. Fatty liver. Electronically signed by: Harlan Miller MD 02/24/2020 5:45 PM CDT
[2020-02-24 18:47] VITALS: BP 113/59; TEMP 98.4; O2SAT 96
== END 2020-02-24 18:46 | disposition home or self-care (01) ==
LOC: ER 15:10
DX: K52.9 Noninfective gastroenteritis and colitis, unspecified (principal); E66.9 Obesity, unspecified; R10.32 Left lower quadrant pain
CPT/HCPCS: 36415; 74177; 80048; 80076; 81001; 81025; 83690; 85025; A4216; J2550; J7030

== ENCOUNTER 2020-04-30 21:05 | Emergency (ER) | payer MEDICAID, OTHER ==
[2020-04-30 21:20] VITALS: TEMP 98.1
--- NOTE | 2020-04-30 21:24 | ED.PDOC ---
History of Present Illness - General Chief Complaint: General Stated Complaint: left flank pain Time Seen by Provider: 04/30/20 21:09 Source: patient, RN notes reviewed, Vital Signs reviewed, old records Exam Limitations: no limitations - History of Present Illness Initial Comments: 24 yo F comes in with the c/c of left flank pain. Started shortly after Radha dinner. went to the park with her kids, then came home and the pain got worse so came in for evaluation. no n/v/d. no constipation. no dysuria or hematuria. Taking motrin and tylenol with improvement in pain. pain worse with movement, improved with rest. no fever. no dysuria. Timing/Duration: 1-3 hours Severity: moderate Improving Factors: nothing Allergies/Adverse Reactions: Allergies Cefaclor [From Ceclor] Allergy (Verified 02/24/20 15:24) Review of Systems - Review of Systems Constitutional: Denies: chills, fever EENTM: Denies: blurred vision, throat pain Respiratory: Denies: cough, short of breath Cardiology: Denies: chest pain, palpitations Gastrointestinal/Abdominal: Denies: abdominal pain, constipation, diarrhea, nausea, vomiting Musculoskeletal: States: back pain. Denies: joint pain, muscle pain Skin: Denies: rash Neurological: Denies: numbness, weakness Endocrine: Denies: unexplained weight gain, unexplained weight loss Hematologic/Lymphatic: Denies: easy bleeding, easy bruising Past Medical History (General) - Patient Medical History Hx Seizures: No Hx Stroke: No Hx Dementia: No Hx Asthma: No Hx of COPD: No Hx Cardiac Disorders: No Hx Congestive Heart Failure: No Hx Pacemaker: No Hx Hypertension: No Hx Thyroid Disease: No Hx Diabetes: No Hx Gastroesophageal Reflux: No Hx Renal Disease: No Hx Cancer: No Hx of HIV: No Hx Hepatitis C: No Hx MRSA: No Surgical History: cholecystectomy - Vaccination History Hx Tetanus, Diphtheria Vaccination: Yes Hx Influenza Vaccination: No Hx Pneumococcal Vaccination: No - Social History Hx Tobacco Use: - Pack a day Hx Chewing Tobacco Use: No Hx Alcohol Use: No Hx Substance Use: No Hx Substance Use Treatment: No Hx Depression: No Feels Threatened In Home Enviroment: No Feels Threatened In a Relationship: No Hx Physical Abuse: No Hx Emotional Abuse: No Hx Suspected Abuse: No - Female History Patient is a Female of Child Bearing Age (10 -59 yrs old): Yes Hx Last Menstrual Period: 04/22/20 Patient : No - Triage Comment ED Triage Comment: The patient walked from the ER waiting room into ER room 5 and was placed in bed with rails up. She was alert and oriented times 4 and complaine dof left side pain. She rated the pain a 8 on the pain scale and described it as a stabbing pain. She denied nausea, vomiting and diarrhea and had no complaints of shortness of breath or chest pain. She had no other noted complaints or obvious signs of ill noted duirng assessment. Family Medical History - Family History Mother Family History: No Known Physical Exam - Physical Exam General Appearance: Alert, Comfortable, No apparent distress, Well Developed, Well Groomed, Well Hydrated, Well Nourished Ears, Nose, Throat: normal ENT inspection Neck: non-tender, full range of motion, supple, normal inspection Respiratory: chest non-tender, lungs clear, normal breath sounds, no respiratory distress, no accessory muscle use Cardiovascular/Chest: normal peripheral pulses, regular rate, rhythm, no edema, no gallop, no JVD, no murmur Peripheral Pulses: radial,right: 2+, radial,left: 2+ Gastrointestinal/Abdominal: normal bowel sounds, non tender, soft, no organomegaly, no pulsatile mass Rectal Exam: deferred Back Exam: normal inspection, no vertebral tenderness, CVA tenderness (L) Extremity: non-tender, normal inspection, no pedal edema Neurologic: no motor/sensory deficits, alert, normal mood/affect, oriented x 3 Skin Exam: normal color, warm/dry Progress - Progress Progress: 04/30/20 22:09 04/30/20 21:22 Abdoment/Pelvis w/o Contrast [CT] Stat HCG,SERUM Stat 04/30/20 21:25 URINE CULTURE W/COLONY COUNT Stat Laboratory Results WBC 8.3 K/mm3 (4.8-10.8) 04/30/20 21:40 RBC 4.59 M/mm3 (4.20-5.40) 04/30/20 21:40 Hgb 11.9 gm/dL (12.0-16.0) L 04/30/20 21:40 Hct 35.9 % (36.0-47.0) L 04/30/20 21:40 MCV 78.2 fl (81.0-99.0) L 04/30/20 21:40 MCH 26.0 pg (27.0-31.0) L 04/30/20 21:40 MCHC 33.2 g/dL (33.0-37.0) 04/30/20 21:40 RDW 15.7 % (11.5-14.5) H 04/30/20 21:40 Plt Count 354 K/mm3 (130-400) 04/30/20 21:40 MPV 7.5 fl (7.40-10.4) 04/30/20 21:40 Absolute Neuts (auto) 4.20 K/uL (1.8-6.8) 04/30/20 21:40 Absolute Lymphs (auto) 3.40 K/uL (1.0-3.4) 04/30/20 21:40 Absolute Monos (auto) 0.40 K/uL (0.2-0.8) 04/30/20 21:40 Absolute Eos (auto) 0.20 K/uL (0.0-0.4) 04/30/20 21:40 Absolute Basos (auto) 0.00 K/uL (0.0-0.1) 04/30/20 21:40 Neutrophils % 50.4 % (42.0-78.0) 04/30/20 21:40 Lymphocytes % 41.0 % (20.0-50.0) 04/30/20 21:40 Monocytes % 5.3 % (2.0-9.0) 04/30/20 21:40 Eosinophils % 3.0 % (1.0-5.0) 04/30/20 21:40 Basophils % 0.3 % (0.0-2.0) 04/30/20 21:40 Sodium 138 mmol/L (135-145) 04/30/20 21:40 Potassium 3.8 mmol/L (3.6-5.0) 04/30/20 21:40 Chloride 105 mmol/L (101-111) 04/30/20 21:40 Carbon Dioxide 26 mmol/L (21-31) 04/30/20 21:40 Anion Gap 10.8 (12-18) L 04/30/20 21:40 BUN 12 mg/dL (7-18) 04/30/20 21:40 Creatinine 0.74 mg/dL (0.6-1.3) 04/30/20 21:40 BUN/Creatinine Ratio 16.2 (10-20) 04/30/20 21:40 Random Glucose 111 mg/dL (70-105) H 04/30/20 21:40 Serum Osmolality 276.1 mOsm/L (275-295) 04/30/20 21:40 Calcium 8.9 mg/dL (8.4-10.2) 04/30/20 21:40 Total Bilirubin 0.2 mg/dL (0.2-1.0) 04/30/20 21:40 AST 17 IU/L (10-42) 04/30/20 21:40 ALT 22 IU/L (10-60) 04/30/20 21:40 Alkaline Phosphatase 52 IU/L (42-121) 04/30/20 21:40 Serum Total Protein 7.5 gm/dL (6.4-8.2) 04/30/20 21: Albumin 4.1 g/dl (3.2-5.5) 04/30/20 21: Globulin 3.4 gm/dL (2.3-3.5) 04/30/20 21:40 Albumin/Globulin Ratio 1.2 (1.1-1.9) 04/30/20 21:40 Urine Color Yellow (Yellow) 04/30/20 21: Urine Appearance Clear (Clear) 04/30/20: Urine pH 7.0 (4.5-7.8) 04/30/20: Ur Specific [place] 1.020 (1.005-1.030) 04/30/20: Urine Protein Trace mg/dL 04/30/20 21: Urine Glucose (UA) Negative mg/dL (Negative) 04/30/20 21: Urine Ketones Negative mg/dL (NEGATIVE) 04/30/20: Urine Blood Moderate (Negative) H 04/30/20: Urine Nitrite Negative 04/30/20 21: Urine Bilirubin Negative (NEGATIVE) 04/30/20 21: Urine Urobilinogen 0.2 mg/dL (0.2-1.0) 04/30/20 21:25 Ur Leukocyte Esterase Trace (Negative) H 12/25/20 21:25 Urine RBC 20-30 /hpf H 04/30/20 21:25 Urine WBC 20-30 /hpf H 04/30/20 21:25 Ur Epithelial Cells 10-20 /hpf 04/30/20 21:25 Urine Bacteria Rare 04/30/20 21:25 Urine HCG, Qual Negative (NEGATIVE) 04/30/20 21:25 partail ddx: pyelonephritis, ureteral stone, ovarian cyst, uti, back strain, appendicitis. 04/30/20 22:38 - Results/Orders Results/Orders: pain improved with toradol. Suspect a muscle spasm, however, due to leuk esterase will treat for uti. No fever, no wbc, do not suspect kidney infection at this time. encouraged good hydration. The data reviewed when caring for this patient included: nurse notes, prior records, etc. The history and assessments from nurses notes were reviewed and considered, and the patient's home medication list was also reviewed and considered. My assessment and the results of testing completed here in the ED were discussed with the patient/family. All questions were answered, and they express understanding of my assessment and the plan. They have been instructed to return if their symptoms worsen, and have been asked to follow up with their primary care physician to recheck today's presenting complaint. return precautions given. I have reviewed medication, benefits, alternatives and side effects. Patient decided to proceed with medication. Chuyita Bose DO #[id number] - EKG/XRAY/CT CT: abd/pelvis: no acute pathology noted. Departure - Departure Clinical Impression: Back pain Qualifiers: Back pain location: back pain in unspecified location Chronicity: acute Back pain laterality: left Qualified Code(s): M54.9 - Dorsalgia, unspecified UTI (urinary tract infection) Qualifiers: Urinary tract infection type: acute cystitis Hematuria presence: with hematuria Qualified Code(s): N30.01 - Acute cystitis with hematuria Time of Disposition: 22:33 Disposition: Discharge to Home or Self Care Condition: Fair Departure Forms: ED Discharge - Pt. Copy, Patient Portal Self Enrollment Instructions: Urinary Tract Infections in Adults, Back Muscle Strain (DC) Diet: resume usual diet Activity: increase activity as tolerated
[2020-04-30] MEDS ORDERED: KETOROLAC TROMETHAMINE INJ 30 MG/ML VIAL IM ONE (22:10)
--- NOTE | 2020-04-30 22:29 | CT ---
EXAM DESCRIPTION: Abdoment/Pelvis w/o Contrast CLINICAL HISTORY: 24 years Female left flank pain COMPARISON: 02/24/2020 TECHNIQUE: Multiple contiguous axial CT slices were taken from the diaphragms to the pubic symphysis without intravenous contrast. This exam was performed according to our departmental dose-optimization program, which includes automated exposure control, adjustment of the mA and/or kV according to patient size and/or use of iterative reconstruction technique. FINDINGS: The lung bases are clear. Visualized cardiomediastinal structures are normal. No focal hepatic lesions. Gallbladder surgically absent. Bile ducts, pancreas, spleen and adrenals are normal. The kidneys, ureters and bladder are normal. The uterus is normal. No adnexal masses. The small bowel is normal. The appendix is normal. The large bowel is normal. No ascites, pneumatosis or pneumoperitoneum. No lymphadenopathy. The aorta and IVC are normal. There are no abdominal wall hernia defects. No destructive osseous lesions. IMPRESSION: 1. No acute abnormality evident. Electronically signed by: Harlan Castellano MD 04/30/2020 10:27 PM [facility]
[2020-04-30] MEDS ORDERED: CYCLOBENZAPRINE TAB (ER DISP) 10 MG TAB PO ONE (22:33)
[2020-04-30] MEDS ORDERED: SULFA/TRIMETH 800/160 (DS) TAB 1 EA TAB PO ONE (22:34)
[2020-04-30 22:43] VITALS: BP 148/75; O2SAT 99
== END 2020-04-30 22:43 | disposition home or self-care (01) ==
LOC: ER 21:05
DX: N30.01 Acute cystitis with hematuria (principal); M54.9 Dorsalgia, unspecified; Z90.49 Acquired absence of other specified parts of digestive tract; Z87.891 Personal history of nicotine dependence; Z88.1 Allergy status to other antibiotic agents
CPT/HCPCS: 74176; 80053; 81001; 81025; 85025; 87086; 87088; 87186; J1885

== ENCOUNTER 2020-05-24 23:37 | Emergency (ER) | payer OTHER ==
[2020-05-25 01:04] VITALS: O2SAT 99
--- NOTE | 2020-05-25 02:18 | ED.PDOC ---
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 Last menstrual period April 24-2019. Patient complains of low cramping abdominal pain, onset today. Home test was positive. No vaginal bleeding. Pain 3/10 at present. Patient has had some nausea and vomiting last few days with 2 episodes of vomiting in the last 24 hours. Blood type is a positive. No dysuria or frequency. No vaginal Discharge. Patient is to see an medical oncology physician in another 4 days. Timing/Duration: this morning Quality: mild Onset Location: RLQ, LLQ Radiation: none Activites at Onset: none Prior abdominal problems: none Improving Factors: nothing Worsening Factors: nothing Allergies/Adverse Reactions: Allergies Cefaclor [From Ceclor] Allergy (Verified 05/25/20 00:57) Home Medications: Ambulatory Orders Vit W/ Ferrous Fumara [] 1 tab PO DAILY 05/25/20 Review of Systems - Review of Systems Constitutional: States: no symptoms reported EENTM: States: no symptoms reported Respiratory: States: no symptoms reported Cardiology: States: no symptoms reported Gastrointestinal/Abdominal: States: see HPI Genitourinary: States: see HPI Musculoskeletal: States: no symptoms reported Skin: States: no symptoms reported Neurological: States: no symptoms reported All other Systems: Reviewed and Negative Past Medical History (General) - Patient Medical History Hx Seizures: No Hx Stroke: No Hx Dementia: No Hx Asthma: No Hx of COPD: No Hx Cardiac Disorders: No Hx Congestive Heart Failure: No Hx Pacemaker: No Hx Hypertension: No Hx Thyroid Disease: No Hx Diabetes: No Hx Gastroesophageal Reflux: No Hx Renal Disease: No Hx Cancer: No Hx of HIV: No Hx Hepatitis C: No Hx MRSA: No Surgical History: no surgical history - Vaccination History Hx Tetanus, Diphtheria Vaccination: Yes Hx Influenza Vaccination: No Hx Pneumococcal Vaccination: No - Social History Hx Tobacco Use: - Pack a day Hx Chewing Tobacco Use: No Hx Alcohol Use: No Hx Substance Use: No Hx Substance Use Treatment: No Hx Depression: No Hx Physical Abuse: No Hx Emotional Abuse: No Hx Suspected Abuse: No - Female History Hx Last Menstrual Period: 04/24/20 Patient : Yes Family Medical History - Family History Mother Family History: No Known Physical Exam - Physical Exam General Appearance: Alert Eyes, Ears, Nose, Throat Exam: PERRL/EOMI Neck: non-tender Cardiovascular/Respiratory: regular rate, rhythm Gastrointestinal/Abdominal: normal bowel sounds, non tender, soft Pelvic Exam: external exam normal, speculum exam normal, bimanual exam normal, no cerv. 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 No adnexal tenderness or masses. Back Exam: normal inspection, no CVA tenderness Extremity: no pedal edema, no calf tenderness Neurologic: pet counselor II-XII nml as tested, no motor/sensory deficits Progress - Progress Progress: 05/25/20 02:41 5 para 3 abortus 1 with very early . Patient complains of mild cramping but does not have any abdominal or pelvic tenderness.Quantitative hCG is too low to suggest ectopic at this time. Patient likely has an early intrauterine or possibly A blighted ovum.Patient is Clinically stable And suitable for For outpatient follow-up with her medical oncology physician in 4 days as scheduled. - Results/Orders Results/Orders: Vital Signs - 24 hr 05/25/20 05/25/20 05/25/20 00:45 01:00 02:00 Temperature 98.0 F Pulse Rate [ 74 86 83 monitor] Respiratory 18 16 16 Rate Blood Pressure 120/79 126/81 115/69 [Right Arm] O2 Sat by Pulse 98 99 99 Oximetry Laboratory Results - last 24 hr 05/25/20 05/25/20 05/25/20 01:15 01:16 01:16 WBC 8.5 RBC 4.66 Hgb 12.0 Hct 36.7 MCV 78.8 L MCH 25.9 L MCHC 32.8 L RDW 15.3 H Plt Count 318 MPV 7.8 Absolute Neuts (auto) 5.00 Absolute Lymphs (auto) 2.60 Absolute Monos (auto) 0.60 Absolute Eos (auto) 0.20 Absolute Basos (auto) 0.00 Neutrophils % 59.6 Lymphocytes % 31.0 Monocytes % 7.1 Eosinophils % 1.8 Basophils % 0.5 Beta HCG, Quant 8.9 H Urine Color Yellow Urine Appearance Cloudy Urine pH 6.5 Ur Specific [place] >= 1.030 Urine Protein Negative Urine Glucose (UA) Negative Urine Ketones Negative Urine Blood Trace-intact H Urine Nitrite Negative Urine Bilirubin Negative Urine Urobilinogen 0.2 Ur Leukocyte Esterase Negative Urine RBC 0-1 Urine WBC 0-1 Ur Epithelial Cells 1-3 Urine Bacteria 1+ Departure - Departure Clinical Impression: Pelvic pain affecting in first trimester, antepartum Time of Disposition: 02:43 Disposition: Discharge to Home or Self Care Condition: Excellent Departure Forms: ED Discharge - Pt. Copy, Patient Portal Self Enrollment Instructions: Stomach Pain in Early Home Medications: Ambulatory Orders Vit W/ Ferrous Fumara [] 1 tab PO DAILY 05/25/20 Additional Instructions: Use Tylenol as needed for pain. No sex, pelvic rest. Keep your appointment in 4 days with your medical oncology physician. If you develop worsening abdominal pain, vaginal bleeding, passing out then return immediately to the emergency department.
[2020-05-25 02:46] VITALS: BP 106/75; TEMP 98.2
== END 2020-05-25 02:47 | disposition home or self-care (01) ==
LOC: ER 23:37
DX: O26.891 Other specified pregnancy related conditions, first trimester (principal); R10.2 Pelvic and perineal pain; Z88.1 Allergy status to other antibiotic agents; Z3A.00 Weeks of gestation of pregnancy not specified; Z87.891 Personal history of nicotine dependence

== ENCOUNTER 2020-06-03 18:51 | Emergency (ER) | payer OTHER ==
--- NOTE | 2020-06-03 20:47 | ED.PDOC ---
History of Present Illness - General Stated Complaint: Abdominal pain Time Seen by Provider: 06/03/20 20:46 Additional Information: 5, para 3, abortus 1. Last menstrual period April 24, 2020. Patient was seen here by myself on May 25 For early and lower abdominal pain. She had a quantitative hCG of 8.9 at that time. Patient had a benign abdominal exam and pelvic examination was unremarkable. Patient did not have any bleeding. She was advised at that time that she either had a very early intrauterine or possibly a demise. She was referred to see a humane officer at that time. - History of Present Illness Allergies/Adverse Reactions: Allergies Cefaclor [From [facility]] Allergy (Verified 05/25/20 00:57) Home Medications: Ambulatory Orders Vit W/ Ferrous Fumara [] 1 tab PO DAILY 05/25/20 Past Medical History (General) - Patient Medical History Hx Seizures: No Hx Stroke: No Hx Dementia: No Hx Asthma: No Hx of COPD: No Hx Cardiac Disorders: No Hx Congestive Heart Failure: No Hx Pacemaker: No Hx Hypertension: No Hx Thyroid Disease: No Hx Diabetes: No Hx Gastroesophageal Reflux: No Hx Renal Disease: No Hx Cancer: No Hx of HIV: No Hx Hepatitis C: No Hx MRSA: No - Vaccination History Hx Tetanus, Diphtheria Vaccination: Yes Hx Influenza Vaccination: No Hx Pneumococcal Vaccination: No - Social History Hx Tobacco Use: - Pack a day Hx Chewing Tobacco Use: No Hx Alcohol Use: No Hx Substance Use: No Hx Substance Use Treatment: No Hx Depression: No Hx Physical Abuse: No Hx Emotional Abuse: No Hx Suspected Abuse: No - Female History Hx Last Menstrual Period: 04/24/20 Patient : Yes Family Medical History - Family History Mother Family History: No Known Progress - Progress Progress: 06/03/20 22:28 Patient left without being seen at 8:20 PM. Departure - Departure Clinical Impression: Abdominal pain Disposition: Left Without Being Seen Referrals: Jordan Bliss MD [Primary Care Provider] - 1-2 Weeks Home Medications: Ambulatory Orders Vit W/ Ferrous Fumara [] 1 tab PO DAILY 05/25/20
== END 2020-06-03 20:50 | disposition left against medical advice (07) ==
LOC: ER 18:51
DX: R10.2 Pelvic and perineal pain (principal); Z53.21 Procedure and treatment not carried out due to patient leaving prior to being seen by health care provider